=== PATIENT | female | born 1990 | race Caucasian/White ===

== ENCOUNTER 2025-06-13 10:41 | Outpatient (REF) | payer MEDICAID, SELFPAY ==
[2025-06-13 16:48] LABS: AST 13 U/L (15-37); Albumin 4.1 g/dL (3.4-5.0); Alkaline Phosphatase 42 U/L (46-116); BUN 12 mg/dL (7-18); Calcium 8.6 mg/dL (8.5-10.1); Estimated GFR 99.09 (mL/min/1.73m2); Glucose 70 mg/dL (74-106)
[2025-06-13 16:49] LABS: Anion Gap 12.6 mmol/L (3-11); Bilirubin, Total 0.5 mg/dL (0.2-1.0); CO2 22.4 mmol/L (21.0-32.0); Chloride 106 mmol/L (98-107); Potassium 3.9 mmol/L (3.5-5.1); Sodium 141 mmol/L (136-145); Total Protein 7.0 g/dL (6.4-8.2)
[2025-06-13 16:50] LABS: ALT 24 U/L (14-59); TSH (W/Ref FT4) 1.75 uIU/mL (0.36-3.74)
[2025-06-14 19:03] LABS: HIV-1/2 Ag & Ab Screen Negative (Negative)
[2025-06-14 19:09] LABS: Hepatitis C Ab w Rflx HCV PCR Negative (Negative)
[2025-06-20 17:31] LABS: 1,25-Dihydroxyvitamin D 41 pg/mL (18-78)
== END 2025-06-13 10:42 | disposition home or self-care (01) ==
LOC: NCHCN 10:41
PROVIDERS: PCP Family Medicine; Visit Provider Nurse Practitioner Family
DX: Z00.00 Encounter for general adult medical examination without abnormal findings (principal)
CPT/HCPCS: 80053; 86803; 87389; 82652; 84443